=== PATIENT | male | born 1950 | race Caucasian/White ===

== ENCOUNTER 2020-12-26 15:01 | Emergency (ER) | payer MEDICARE ==
[~2020-12-26] VITALS: Ht 188 cm; Wt 80.7 kg
[2020-12-26 15:13] VITALS: Ht 188 cm; Wt 80.7 kg
[2020-12-26] MEDS ORDERED: NEURONTIN 400400 MG PO (15:29)
[2020-12-26] MEDS ORDERED: ELIQUIS5 MG PO (15:29)
[2020-12-26] MEDS ORDERED: MULTI-DAY VITAM1 TAB PO (15:29)
[2020-12-26] MEDS ORDERED: LANOXIN125 MCG PO (15:30)
[2020-12-26] MEDS ORDERED: ZOLOFT50 MG PO (15:30)
[2020-12-26] MEDS ORDERED: ZYLOPRIM300 MG PO (15:31)
[2020-12-26] MEDS ORDERED: ISOSORBIDE MONO60 M1 PO (15:31)
[2020-12-26] MEDS ORDERED: LASIX20 MG PO (15:31)
[2020-12-26] MEDS ORDERED: LIPITOR20 MG PO (15:31)
[2020-12-26] MEDS ORDERED: GLUCOPHAGE1000 MG PO (15:32)
[2020-12-26] MEDS ORDERED: COREG 3.1253.125 MG PO (15:32)
[2020-12-26] MEDS ORDERED: BRILINTA90 MG PO (15:32)
[2020-12-26] MEDS ORDERED: NOVOLOG100 UNIT/1 SC (15:33)
[2020-12-26] MEDS ORDERED: IBESARTAN PO (15:34)
[2020-12-26 15:45] LABS: BASOPHILS 0.3 % (0-2); EOSINOPHILS 3.7 % (0-7); HEMATOCRIT 36.2 % (42.0-54.0); IMMATURE GRANULOCYTES 0.3 % (0-5); LYMPHOCYTE ABS# 0.99 10x3/uL (1.32-3.57); LYMPHOCYTES 14.5 % (15-50); MCH 32.1 pg (26.0-34.0); MCHC 33.1 g/dL (31.0-37.0); MCV 96.8 fL (80.0-100.0); MEAN PLATELET VOLUME 11.7 fL (7.4-10.4); MONOCYTES 7.9 % (2-11); NEUTROPHIL ABS# 5.02 10x3/uL (1.78-5.38); NEUTROPHILS 73.3 % (40-80); PLATELET COUNT 146 10x3/uL (130-400); RBC 3.74 10x6/uL (4.20-6.10); RDW 14.3 % (11.5-14.5); WBC 6.8 10x3/uL (4.8-10.8)
[2020-12-26 15:56] LABS: ANION GAP 13.5 mmol/L (8-16); CALCIUM 9.4 mg/dL (8.5-10.1); CREATININE - SERUM 1.4 mg/dL (0.6-1.3); POTASSIUM - SERUM 4.5 mmol/L (3.5-5.1)
[2020-12-26 16:02] LABS: ALBUMIN 3.4 g/dL (3.4-5.0); BILIRUBIN - TOTAL 0.39 mg/dL (0.2-1.3); PROTEIN - SERUM 6.8 g/dL (6.4-8.2)
[2020-12-26 18:20] VITALS: BP 159/64
== END 2020-12-26 18:50 | disposition home or self-care (01) ==
LOC: D.ER 15:01
PROVIDERS: Emergency Medicine
DX: E11.649 Type 2 diabetes mellitus with hypoglycemia without coma (principal); Z86.73 Personal history of transient ischemic attack (TIA), and cerebral infarction without residual deficits; I10 Essential (primary) hypertension; Z79.84 Long term (current) use of oral hypoglycemic drugs

== ENCOUNTER → 2021-01-31 17:07 | Outpatient (CLI) | payer MEDICARE ==
[2020-12-26 15:13] VITALS: BMI 22.8
[~2021-01-31 17:07] MED LIST: BRILINTA90 MG PO; COREG 3.1253.125 MG PO; ELIQUIS5 MG PO; GLUCOPHAGE1000 MG PO; IBESARTAN PO; ISOSORBIDE MONO60 M1 PO; LANOXIN125 MCG PO; LASIX20 MG PO; LIPITOR20 MG PO; MULTI-DAY VITAM1 TAB PO; NEURONTIN 400400 MG PO; NOVOLOG100 UNIT/1 SC; ZOLOFT50 MG PO; ZYLOPRIM300 MG PO
[2021-01-31 18:56] LABS: EOSINOPHILS 3.1 % (0-7); HEMATOCRIT 30.2 % (42.0-54.0); HEMOGLOBIN 10.1 g/dL (13.5-17.5); LYMPHOCYTES 12.5 % (15-50); MCH 32.2 pg (26.0-34.0); MCHC 33.5 g/dL (31.0-37.0); MCV 96.3 fL (80.0-100.0); MONOCYTES 7.2 % (2-11); NEUTROPHILS 76.2 % (40-80); PLATELET COUNT 138 10x3/uL (130-400); RBC 3.14 10x6/uL (4.20-6.10); RDW 15.3 % (11.5-14.5); WBC 6.4 10x3/uL (4.8-10.8)
[2021-01-31 19:33] LABS: BILIRUBIN - TOTAL 0.52 mg/dL (0.2-1.3); CALCIUM 8.7 mg/dL (8.5-10.1); CARBON DIOXIDE 26.4 mmol/L (21.0-32.0); CREATININE - SERUM 1.1 mg/dL (0.6-1.3); DIGOXIN 0.68 ng/mL (0.90-2.00); LDL-HDL RATIO 1.5 ratio (1.5-3.5); POTASSIUM - SERUM 4.4 mmol/L (3.5-5.1); PROTEIN - SERUM 5.5 g/dL (6.4-8.2)
== END | disposition home or self-care (01) ==
LOC: D.LABREF 17:07
PROVIDERS: ATTEND Family Medicine
DX: I25.10 Atherosclerotic heart disease of native coronary artery without angina pectoris (principal); I10 Essential (primary) hypertension; I48.0 Paroxysmal atrial fibrillation; M48.56XD Collapsed vertebra, not elsewhere classified, lumbar region, subsequent encounter for fracture with routine healing; M1A.2 Drug-induced chronic gout